=== PATIENT | female | born 1950 | race Caucasian/White ===

== ENCOUNTER 2017-03-22 09:23 | Outpatient (CLI) | payer BC ==
--- NOTE | 2017-03-22 10:28 | ULT ---
THRYOID ULTRASOUND: Date: 03-22-17 Provided Clinical History: Thyroid nodules. Comparison: 09-09-15 FINDINGS: Right thyroid lobe measures about 4.1 x 1.8 x 1.7 cm. Multiple solid appearing thyroid nodules are se en on the right, one at the midportion measuring about 1.7 cm maximally and one at the inferior pole measuring about 1.8 cm maximally. Left thyroid lobe measures about 3.9 x 1.5 x 1.3 cm and demonstrates several subcentimeter solid appe aring nodules. The largest measures about 1 cm in the mid portion of the left thyroid lobe. No defini te enlargement of pre-existing nodule or evidence for a new nodule. IMPRESSION: 1. Stable bilateral thyroid nodules. POS: [facility]
== END 2017-03-22 09:24 | disposition home or self-care (01) ==
LOC: ULT 09:23
PROVIDERS: ATTEND Otolaryngology Plastic Surgery within the Head & Neck
DX: E04.2 Nontoxic multinodular goiter (principal)
CPT/HCPCS: 76536

== ENCOUNTER 2017-05-23 10:54 | Outpatient (CLI) | payer BC | END 2017-05-23 10:55 | disposition home or self-care (01) | LOC: BICMAMMO 10:54 | PROVIDERS: ATTEND Family Medicine | DX: Z12.31 Encounter for screening mammogram for malignant neoplasm of breast (principal) | CPT/HCPCS: 77063; 77067 ==

== ENCOUNTER 2018-01-22 14:13 | Outpatient (CLI) | payer BC ==
--- NOTE | 2018-01-22 15:48 | MRI ---
MRI LUMBAR SPINE WITH AND WITHOUT CONTRAST: Multiplanar, multisequential imaging of the lumbar spine obtained. Postcontrast images were obtained administering 15 cc of MultiHance IV. INDICATION: Lumbar radiculopathy. Low back pain with radiation to the left leg. COMPARISON: Correlation is made to an MRI of the lumbar spine dated 01/04/2015. That exam revealed mild anteroli sthesis at L5-S1. FINDINGS: On today's exam, postoperative changes are now noted at L5-S1 with pedicle screws at these levels. T here continues to be a mild anterolisthesis at L5-S1 which does not appear significantly changed when compared to the 2015 study. Lumbar vertebrae maintain height. Vertebral body signal is normally ma intained. Disk space are preserved. At L1-2, mild disk bulge without central canal or foraminal stenosis. At L2-3, mild disk bulge. No central canal or foraminal stenosis. Mild facet arthrosis. At L3-4, mild disk bulge abuts the thecal sac. Mild facet hypertrophy. No significant central canal or foraminal stenosis. At L4-5, a minimal listhesis. Broad-based bulge. Moderate facet hypertrophy. Moderate central ari l stenosis at this level. Bilateral foraminal stenosis secondary to disk bulge and facet hypertrophy . Pedicle screws at L5. The right pedicle screw obscures the lateral recess on the right. Pedicle scr ew position could be better assessed by CT if indicated. At L5-S1 disk, there is a mild anterior listhesis with associated disk bulge abutting the thecal sac. Mild foraminal narrowing, more prominent on the right due to asymmetric disk bulge and facet hypert rophy on the right. There appears to be disk-osteophyte complex contacting the exiting right L5 nerv e root within the foramina. Pedicle screws are seen at S1. IMPRESSION: 1. Postoperative changes now noted at L5-S1. Mild anterior listhesis of L5-S1 again noted. Right f oraminal encroachment with disk-osteophyte complex contacting the exiting right L5 nerve root as desc ribed. 2. There is evidence of multiple bilateral renal cystic lesions with a large one on the left measuri ng up to 5 cm. These cystic lesions were present on the prior MRI from 2014. POS: [facility]
== END 2018-01-22 14:14 | disposition home or self-care (01) ==
LOC: MRI 14:13
PROVIDERS: ATTEND Neurological Surgery
DX: M54.16 Radiculopathy, lumbar region (principal); N28.1 Cyst of kidney, acquired; M43.17 Spondylolisthesis, lumbosacral region; M25.78 Osteophyte, vertebrae; Z98.890 Other specified postprocedural states
CPT/HCPCS: 72158

== ENCOUNTER 2018-01-31 12:59 | Emergency (ER) | payer BC ==
--- NOTE | 2018-01-31 14:20 | RAD ---
2 VIEW CHEST: Date: 01/31/18 COMPARISON: 03/05/17. INDICATION: Cough. FINDINGS: No consolidation, effusion, or pneumothorax. Cardiac silhouette is stable in size. No significant int erval change. IMPRESSION: Stable chest. POS: [facility]
== END 2018-01-31 14:35 | disposition home or self-care (01) ==
LOC: SCSER 12:59
DX: J06.9 Acute upper respiratory infection, unspecified (principal); J40 Bronchitis, not specified as acute or chronic; E78.5 Hyperlipidemia, unspecified; I10 Essential (primary) hypertension; Z79.899 Other long term (current) drug therapy; Z79.82 Long term (current) use of aspirin
CPT/HCPCS: 71046

== ENCOUNTER 2018-03-17 06:27 | Outpatient (CLI) | payer BC | END 2018-03-17 06:28 | disposition home or self-care (01) | LOC: LABBT 06:27 | PROVIDERS: ATTEND Neurological Surgery | DX: Z01.818 Encounter for other preprocedural examination (principal); M54.16 Radiculopathy, lumbar region | CPT/HCPCS: 93005; 93010 ==

== ENCOUNTER 2018-03-19 05:32 | Day surgery (SDC) | payer BC ==
[2018-03-17 09:33] VITALS: BMI 35.6
--- NOTE | 2018-03-18 10:01 | HP ---
HISTORY OF PRESENT ILLNESS: Ms. Anand is a very pleasant 68-year-old woman, who is known to us for prior lumbar fusion, who returns today with now adjacent segment disease seen on MRI from [place] at L3-L4. She reports severe left L4 radiculopathy, which alters her gait and keeps her up at night. She also has what appears to be some foraminal stenosis at L4 as well on the left side, all fits her pain rather well. She has treated this conservatively with injections, therapy, and [id number] medications and unfortunately, has not reached to the point, where she feels that she has made any significant improvement and would like to move forward with surgery at this time. PAST MEDICAL HISTORY: She has a medical history of hypertension. CURRENT MEDICATIONS: 1. Omeprazole. 2. Zyrtec. 3. Aspirin 81 mg. 4. Lyrica. 5. Amlodipine. 6. Valsartan. 7. Spironolactone. 8. Ambien. 9. Pravastatin. ALLERGIES: NO KNOWN DRUG ALLERGIES. PHYSICAL EXAMINATION: The patient is alert and oriented x3. Gait is significantly antalgic. Lower extremity exam is normal. She does have a positive left femoral stretch. ASSESSMENT: Lumbar stenosis with radiculopathy. PLAN: Dr. Faustin met with the patient, reviewed imaging, and advocated for L3-L4 decompression and left L4 facetectomy. He explained to the patient the risks, benefits, and alternatives to the procedure. The patient expressed understanding and elected to move forward with surgery as discussed. I do believe the patient is mentally competent and capable of making medical decisions for herself. We will move forward with surgery as planned. Job ID: [id number]
[2018-03-19] MEDS ORDERED: Bupivacaine HCl 0.5%/Epinephrine 1:200,000/PF 30 ml Vial ONE (06:20)
[2018-03-19] MEDS ORDERED: Thrombin 5000 UNITS/5 ML VIAL ONE (06:20)
[2018-03-19] MEDS ORDERED: CEFAZOLIN 2 GM/50 ML BAG ONE ×2 (06:28→11:35)
[2018-03-19] MEDS ORDERED: Midazolam HCl 2 mg/2 ml Vial ONE (06:43)
[2018-03-19 06:44] LABS: #Eosinphils 0.2 thou/uL (0.0-0.7); #Lymphocytes 1.9 thou/uL (1.20-3.40); #Monocytes 0.6 thou/uL (0.11-0.59); #Neutrophils 2.9 thou/uL (1.40-6.50); %Basophils 0.2 % (0.0-1.0); %Eosinophils 3.5 % (0.0-10.0); %Lymphocytes 34.3 % (21.0-51.0); %Monocytes 10.4 % (0.0-10.0); %Neutrophils 51.7 % (42.0-75.0); Hemoglobin 13.2 g/dL (12.0-16.0); Mean Corpuscular HGB CONC 33.3 g/dL (32.0-36.0); Mean Corpuscular Hemoglobin 29.3 pg (27.0-31.0); Mean Platelet Volume 7.8 fL (7.4-10.4); Platelet Count 277 thou/uL (130-400); RBC Distribution Width 11.9 % (11.5-14.5); Red Blood Cell (RBC) Count 4.51 mill/uL (4.20-5.40); White Blood Cell (WBC) Count 5.5 thou/uL (4.8-10.8)
[2018-03-19 06:51] LABS: INR-International Normal Ratio 1.1; PTT 31.4 SEC (22.9-36.1); Prothrombin Time 14.7 SEC (12.0-14.7)
[2018-03-19] MEDS ORDERED: Fentanyl 100 MCG/2 ML VIAL ONE ×2 (07:05→10:44)
--- NOTE | 2018-03-19 10:23 | OP ---
DATE OF PROCEDURE: 03/19/2018 [employer] OPERATOR: Amandeep Lewis PA-C INDICATION: Pain. DIAGNOSIS: Lumbar radiculopathy. PROCEDURES PERFORMED: Left L4 medial facetectomy and left L3-L4 lateral recess decompression. ANESTHESIA: General. DESCRIPTION OF PROCEDURE: The patient was brought into the operating room, placed under general anesthesia. She was flipped from the supine to prone position on the operating room table. A linear incision was planned over the L3 and L4 segments. After prepping and draping and after preoperative pause, the incision was created. The soft tissues were swept left of midline. A self-retaining retractor was placed. The L4 lamina was identified with C-arm fluoroscopy and a high-speed cutting drill bit was used to perform a laminectomy along the left side encompassing all of L4 and the inferior aspect of L3 in order to decompress the L3-L4 segment. The L4 laminectomy was extended laterally to encompass the medial aspect of the facet joint in order to decompress the exiting L4 nerve root. At the completion of the procedure, the descending L4 and exiting L4 nerve root on the left was well decompressed. The wound was irrigated. Hemostasis was maintained throughout. The wound was then closed in anatomic layers and a pressure dressing was applied. There were no known procedural complications. Job ID: [id number]
[2018-03-19] MEDS ORDERED: HYDROcodone/Acetaminophen 5/325 mg Tablet ONE (11:45)
[2018-03-19] MEDS ORDERED: Dexamethasone 20 MG/5 ML VIAL ONE (13:15)
[2018-03-19] MEDS ORDERED: ePHEDrine/0.9% NaCl/PF SYRINGE 50 mg/10 ml ONE (13:15)
[2018-03-19] MEDS ORDERED: Lidocaine 1% PF 5 ML VIAL ONE (13:15)
[2018-03-19] MEDS ORDERED: Glycopyrrolate 0.2 MG/ML 5 ML SYRINGE ONE (13:15)
[2018-03-19] MEDS ORDERED: Ondansetron PF 4 MG/2 ML Vial ONE (13:15)
[2018-03-19] MEDS ORDERED: PROPOFOL 200 MG/20 ML VIAL ONE (13:15)
[2018-03-19] MEDS ORDERED: Rocuronium Bromide 10 MG/ML (10ML VIAL) ONE (13:15)
== END 2018-03-19 12:15 | disposition home or self-care (01) ==
LOC: SDC 05:32
PROVIDERS: ATTEND Neurological Surgery
PROC: 01NB0ZZ Release Lumbar Nerve, Open Approach (ICD-10-PCS; principal; 2018-03-19)
DX: M48.061 Spinal stenosis, lumbar region without neurogenic claudication (principal); M54.16 Radiculopathy, lumbar region; I10 Essential (primary) hypertension; Z79.82 Long term (current) use of aspirin; Z79.899 Other long term (current) drug therapy; Z88.2 Allergy status to sulfonamides; Z88.5 Allergy status to narcotic agent; Z88.8 Allergy status to other drugs, medicaments and biological substances; Z91.041 Radiographic dye allergy status; Z98.1 Arthrodesis status
CPT/HCPCS: 36415; 76000; 85025; 85610; 85730; J0670; J1100; J2001; J2250; J2405; J2704; J3010

== ENCOUNTER 2018-03-23 16:11 | Emergency (ER) | payer BC ==
[2018-03-23] MEDS ORDERED: methylPREDNISolone Sod Succ/PF 125 MG/2 ML VIAL ONE (16:36)
[2018-03-23] MEDS ORDERED: diphenhydrAMINE 50 MG/ML VIAL ONE (16:36)
[2018-03-23] MEDS ORDERED: Benzocaine 20% Spray 60 ML CAN ONE ×2 (16:49→16:50)
[2018-03-23 16:56] LABS: #Basophils 0.1 thou/uL (0.0-0.2); #Eosinphils 0.3 thou/uL (0.0-0.7); #Lymphocytes 2.7 thou/uL (1.20-3.40); #Monocytes 0.6 thou/uL (0.11-0.59); #Neutrophils 4.8 thou/uL (1.40-6.50); %Basophils 1.1 % (0.0-1.0); %Eosinophils 3.9 % (0.0-10.0); %Monocytes 6.8 % (0.0-10.0); %Neutrophils 56.2 % (42.0-75.0); Hemoglobin 13.4 g/dL (12.0-16.0); Mean Corpuscular Hemoglobin 28.8 pg (27.0-31.0); Mean Corpuscular Volume 87.3 fL (78.0-98.0); Mean Platelet Volume 8.5 fL (7.4-10.4); Platelet Count 283 thou/uL (130-400); RBC Distribution Width 12.5 % (11.5-14.5); Red Blood Cell (RBC) Count 4.64 mill/uL (4.20-5.40); White Blood Cell (WBC) Count 8.6 thou/uL (4.8-10.8)
[2018-03-23 17:08] LABS: ALT (SGPT) 22 U/L (8-55); AST (SGOT) 25 U/L (5-34); Albumin 3.5 g/dL (3.4-4.8); Alkaline Phosphatase 119 U/L (40-150); Anion Gap 13 mmol/L (10-20); BUN (Urea Nitrogen) 11 mg/dL (9.8-20.1); Bilirubin, Total 0.4 mg/dL (0.2-1.2); Calc. Creatinine Clearance 0 mL/min (70-130); Carbon Dioxide 28 mmol/L (23-31); Chloride 107 mmol/L (98-107); Estimated GFR-MDRD 61; Globulin 2.7 g/dL (2.4-3.5); Glucose 100 mg/dL (80-115); Potassium 3.5 mmol/L (3.5-5.1); Protein, Total 6.2 g/dL (6.0-8.3); Sodium 144 mmol/L (136-145)
[2018-03-23] MEDS ORDERED: Meclizine HCl 25 MG TAB ONE (17:16)
== END 2018-03-23 18:59 | disposition home or self-care (01) ==
LOC: SCSER 16:11
DX: J35.8 Other chronic diseases of tonsils and adenoids (principal); R42 Dizziness and giddiness; I10 Essential (primary) hypertension; E78.5 Hyperlipidemia, unspecified; K21.9 Gastro-esophageal reflux disease without esophagitis; Z79.899 Other long term (current) drug therapy
CPT/HCPCS: 80053; 85025; 93005; 96374; 96375; J1200; J2930

== ENCOUNTER 2018-04-23 12:33 | Outpatient (CLI) | payer BC ==
--- NOTE | 2018-04-23 14:31 | CT ---
CT LUMBAR SPINE WITHOUT CONTRAST: HISTORY: Lumbar radiculopathy. CORRELATION: Lumbar spine MRI from 01/22/2018. FINDINGS: Based on the nomenclature from the previous examination, the fusion level will be designated as L5-S1 . There is persistent anterolisthesis of L5 upon S1 (6 mm). Bilateral transpedicular screws at L5 a nd S1 without perihardware lucency. The visualized lung parenchymal and solid organs are unremarkable. No retroperitoneal mass, lymphade nopathy, or hematoma. There is diverticulosis in the sigmoid colon. No evidence of diverticulitis. However, the mucosa of the mid sigmoid colon is somewhat prominent. The patient should consider und ergoing a colonoscopy if she has not done so, to exclude an underlying neoplastic process. Limited evaluation of the contents of the central spinal canal and neural foramina due to technique. T12-L1: No significant central canal stenosis or foraminal narrowing. L1-L2: No significant central canal stenosis or foraminal narrowing. L2-L3: Minimal generalized disk bulge without significant central canal stenosis or foraminal narrow ing. L3-L4: Generalized disk bulge without significant central canal stenosis or foraminal narrowing. L4-L5: Left hemilaminectomy defect. Generalized disk bulge without significant central canal stenos is. The right neural foramen is mildly narrowed. The left foramen is patent. L5-S1: Limited evaluation of the central spinal canal. No evidence of high-grade central canal sten osis or high-grade foraminal narrowing. IMPRESSION: 1. Uncomplicated lumbar fusion at L5-S1. No significant central canal stenosis or foraminal narrowi ng. 2. Left laminotomy defect at L4-L5. POS: [facility]
== END 2018-04-23 12:34 | disposition home or self-care (01) ==
LOC: BICCT 12:33
PROVIDERS: ATTEND Neurological Surgery
DX: M54.16 Radiculopathy, lumbar region (principal); Z98.1 Arthrodesis status
CPT/HCPCS: 72131

== ENCOUNTER 2018-04-25 13:43 | Outpatient (CLI) | payer BC ==
--- NOTE | 2018-04-25 16:14 | ULT ---
THYROID ULTRASOUND: INDICATIONS: Thyroid nodules. COMPARISON: 03/22/2017 TECHNIQUE: Ma-scale color Doppler images were obtained. FINDINGS: The right thyroid lobe measures 4.4 x 1.8 x 1.7 cm. There is a stable TI-RADS 3 solid nodule within the lower right thyroid gland, measuring 1.5 x 1.2 x 1 cm. Additional TI-RADS 3 solid nodule is seen within the right mid thyroid gland, measuring 1.5 x 1.2 x 0.9 cm. Stable TI-RADS 3 solid nodule is seen within the superior pole right thyroid lobe, measuring 0.8 cm. The left thyroid lobe measures 3.8 x 1.3 x 1.3 cm. There are stable, solid, hypoechoic nodules withi n the left thyroid gland, the largest measuring 1 cm, within the left mid thyroid lobe. There are 6 mm nodules seen within the superior and lower pole of the left thyroid gland. The thyroid isthmus measures 0.2 cm. IMPRESSION: Stable thyroid nodules. No sonographic followup is recommended, as these TI-RADS 3 lesions have been stable. POS: [facility]
== END 2018-04-25 13:44 | disposition home or self-care (01) ==
LOC: SCSULT 13:43
PROVIDERS: ATTEND Otolaryngology Plastic Surgery within the Head & Neck
DX: E04.1 Nontoxic single thyroid nodule (principal); E04.2 Nontoxic multinodular goiter
CPT/HCPCS: 76536

== ENCOUNTER 2018-09-10 06:57 | Emergency (ER) | payer BC, MEDICARE ==
[2018-09-10] MEDS ORDERED: Ketorolac Tromethamine 30 MG/ML VIAL ONE (07:20)
[2018-09-10] MEDS ORDERED: Cyclobenzaprine 10 MG TAB ONE (07:20)
--- NOTE | 2018-09-10 08:11 | RAD ---
XR Lumbar Spine 2 Or 3 View: 09/10/2018 7:19 AM CLINICAL INDICATION: Back pain COMPARISON: 03/10/2015 FINDINGS: Fracture:No fracture. Arthropathy:Degenerative changes of the lumbar spine, mid inferior aspect are grossly stable. There i s persistent Grade I-II spondylolisthesis at L5-S1 with associated posterior fusion of L5-S1 levels, without interval hardware complication identified Incidental findings:None of significance. IMPRESSION: 1. Stable postoperative lumbar spine with persistent Grade I-II spondylolisthesis, L5-S1.
--- NOTE | 2018-09-10 08:12 | RAD ---
XR Thoracic Spine 3 V STANDARD: 09/10/2018 7:19 AM CLINICAL INDICATION: Back pain, left thoracic spinal pain COMPARISON: None. FINDINGS: Fracture:No fracture. Arthropathy:Mild multilevel degenerative change of the thoracic spine is present Incidental findings:Cervical spondylosis IMPRESSION: 1. No acute osseous abnormality.
[2018-09-10] MEDS ORDERED: traMADol HCl 50 MG TAB ONE (08:49)
== END 2018-09-10 09:05 | disposition home or self-care (01) ==
LOC: ERS 06:57
DX: S39.012A Strain of muscle, fascia and tendon of lower back, initial encounter (principal); I10 Essential (primary) hypertension; E78.5 Hyperlipidemia, unspecified; Z79.82 Long term (current) use of aspirin; Z79.899 Other long term (current) drug therapy; Z79.891 Long term (current) use of opiate analgesic; X58.XXXA Exposure to other specified factors, initial encounter
CPT/HCPCS: 72072; 72100; 96372; J1885

== ENCOUNTER 2018-09-26 18:44 | Emergency (ER) | payer BC, MEDICARE ==
[2018-09-26] MEDS ORDERED: Promethazine HCl 25 MG/ML VIAL ONE ×2 (19:36→20:41)
[2018-09-26 19:39] LABS: #Basophils 0.1 thou/uL (0.0-0.2); #Eosinphils 0.2 thou/uL (0.0-0.7); #Lymphocytes 3.1 thou/uL (1.20-3.40); #Monocytes 0.6 thou/uL (0.11-0.59); #Neutrophils 5.6 thou/uL (1.40-6.50); %Basophils 0.9 % (0.0-1.0); %Eosinophils 2.5 % (0.0-10.0); %Lymphocytes 32.3 % (21.0-51.0); %Monocytes 6.2 % (0.0-10.0); %Neutrophils 58.2 % (42.0-75.0); Hemoglobin 13.6 g/dL (12.0-16.0); Mean Corpuscular HGB CONC 33.2 g/dL (32.0-36.0); Mean Corpuscular Hemoglobin 28.5 pg (27.0-31.0); Mean Platelet Volume 7.7 fL (7.4-10.4); Platelet Count 345 thou/uL (130-400); Red Blood Cell (RBC) Count 4.76 mill/uL (4.20-5.40); White Blood Cell (WBC) Count 9.6 thou/uL (4.8-10.8)
[2018-09-26 19:54] LABS: ALT (SGPT) 20 U/L (8-55); AST (SGOT) 14 U/L (5-34); Albumin 3.7 g/dL (3.4-4.8); Alkaline Phosphatase 141 U/L (40-150); Anion Gap 13 mmol/L (10-20); BUN (Urea Nitrogen) 14 mg/dL (9.8-20.1); Bilirubin, Total 0.3 mg/dL (0.2-1.2); Calc. Creatinine Clearance 0 mL/min (70-130); Calcium 9.5 mg/dL (7.8-10.44); Carbon Dioxide 25 mmol/L (23-31); Chloride 106 mmol/L (98-107); Estimated GFR-MDRD 67; Globulin 3.1 g/dL (2.4-3.5); Glucose 97 mg/dL (80-115); Potassium 3.9 mmol/L (3.5-5.1); Protein, Total 6.8 g/dL (6.0-8.3); Sodium 140 mmol/L (136-145)
--- NOTE | 2018-09-26 20:27 | RAD ---
EXAM: ABDOMEN TWO VIEWS CHEST ONE VIEW: 09/26/18 HISTORY: Diverticulitis, abdominal pain. No significant acute process in the chest. No free intraperitoneal air. Postop changes of the lower l umbar spine as well as post cholecystectomy clips. No large or small bowel obstruction. No overt calc ulus. IMPRESSION: Unremarkable abdomen two views, chest one view. POS: [facility]
[2018-09-26] MEDS ORDERED: Ketorolac Tromethamine 30 MG/ML VIAL ONE (20:46)
[2018-09-26] MEDS ORDERED: cloNIDine 0.1 MG TAB ONE (20:46)
[2018-09-26 21:24] LABS: Bilirubin Negative (Negative); Blood, Urine Trace (Negative); Clarity Clear (Clear); Glucose, Urine (Dipstick) Negative (Negative); Leukocyte Trace (Negative); Nitrite Negative (Negative); Protein, Urine (Dipstick) Negative (Neg-Trace); Urobilinogen 0.2 mg/dL (Less than 2)
[2018-09-26 21:26] LABS: Bacteria/HPF Rare-Few HPF (None Seen); RBC/HPF 0-3 HPF (0-3); Squamous Epithelial 0-3 HPF (0-3); WBC/HPF 0-3 HPF (0-3)
== END 2018-09-26 21:39 | disposition home or self-care (01) ==
LOC: SCSER 18:44
DX: R10.9 Unspecified abdominal pain (principal); R10.817 Generalized abdominal tenderness; K21.9 Gastro-esophageal reflux disease without esophagitis; E78.5 Hyperlipidemia, unspecified; I10 Essential (primary) hypertension; Z79.82 Long term (current) use of aspirin; Z79.899 Other long term (current) drug therapy
CPT/HCPCS: 74022; 80053; 81003; 81015; 83690; 85025; 96365; 96366; 96375; J1885; J2550

== ENCOUNTER 2020-05-04 14:25 | Outpatient (CLI) | payer MEDICARE, OTHER | END 2020-05-04 14:26 | disposition home or self-care (01) | LOC: BICMAMMO 14:25 | PROVIDERS: ATTEND Family Medicine | DX: Z12.31 Encounter for screening mammogram for malignant neoplasm of breast (principal); Z13.820 Encounter for screening for osteoporosis; M85.852 Other specified disorders of bone density and structure, left thigh; M85.851 Other specified disorders of bone density and structure, right thigh; Z78.0 Asymptomatic menopausal state | CPT/HCPCS: 77063; 77067; 77080 ==

== ENCOUNTER 2020-05-13 09:54 | Outpatient (CLI) | payer BC, MEDICARE | END 2020-05-13 09:55 | disposition home or self-care (01) | LOC: LABBT 09:54 | PROVIDERS: ATTEND Neurological Surgery | DX: Z01.810 Encounter for preprocedural cardiovascular examination (principal); M54.16 Radiculopathy, lumbar region | CPT/HCPCS: 93005; 93010 ==

== ENCOUNTER 2020-05-18 06:23 | Day surgery (SDC) | payer MEDICARE, OTHER ==
[2020-05-17 14:10] VITALS: BMI 34.0
[2020-05-18] MEDS ORDERED: Bupivacaine PF 0.5% 30 ML VIAL ONE (06:57)
[2020-05-18] MEDS ORDERED: EPINEPHrine 1 MG/ML AMP ONE (06:57)
[2020-05-18] MEDS ORDERED: Thrombin 5000 UNITS/5 ML VIAL ONE (06:57)
[2020-05-18] MEDS ORDERED: Fentanyl 100 MCG/2 ML VIAL ONE ×2 (06:59→10:07)
[2020-05-18] MEDS ORDERED: SUGAMMADEX SODIUM 200 MG/2 ML VIAL ONE (07:33)
[2020-05-18] MEDS ORDERED: PROPOFOL 200 MG/20 ML VIAL ONE (08:22)
[2020-05-18] MEDS ORDERED: Rocuronium Bromide 10 MG/ML (10ML VIAL) ONE (08:22)
[2020-05-18] MEDS ORDERED: Ketorolac Tromethamine 30 MG/ML VIAL ONE (08:22)
[2020-05-18] MEDS ORDERED: Dexamethasone 20 MG/5 ML VIAL ONE (08:22)
[2020-05-18] MEDS ORDERED: Ondansetron PF 4 MG/2 ML Vial ONE (08:22)
[2020-05-18] MEDS ORDERED: Lidocaine 1% PF 5 ML VIAL ONE (08:22)
[2020-05-18] MEDS ORDERED: ePHEDrine 50 MG/ML VIAL ONE (08:22)
== END 2020-05-18 12:50 | disposition home or self-care (01) ==
LOC: SDC 06:23
PROVIDERS: ATTEND Neurological Surgery
PROC: 01NB0ZZ Release Lumbar Nerve, Open Approach (ICD-10-PCS; principal; 2020-05-18)
DX: M54.16 Radiculopathy, lumbar region (principal); M48.061 Spinal stenosis, lumbar region without neurogenic claudication; I25.10 Atherosclerotic heart disease of native coronary artery without angina pectoris; I10 Essential (primary) hypertension; E78.00 Pure hypercholesterolemia, unspecified; K21.9 Gastro-esophageal reflux disease without esophagitis; M79.7 Fibromyalgia; E78.2 Mixed hyperlipidemia; Z79.82 Long term (current) use of aspirin; Z79.899 Other long term (current) drug therapy; Z88.2 Allergy status to sulfonamides; Z88.5 Allergy status to narcotic agent; Z88.8 Allergy status to other drugs, medicaments and biological substances; Z91.041 Radiographic dye allergy status
CPT/HCPCS: 76000; J0171; J0690; J1100; J1885; J2405; J2704; J3010; J3490; S0020

== ENCOUNTER 2022-05-22 10:19 | Outpatient (CLI) | payer MEDICARE | END 2022-05-22 10:20 | disposition home or self-care (01) | LOC: BICMAMMO 10:19 | PROVIDERS: ATTEND Family Medicine | DX: Z12.31 Encounter for screening mammogram for malignant neoplasm of breast (principal); Z13.820 Encounter for screening for osteoporosis; M85.851 Other specified disorders of bone density and structure, right thigh; M85.852 Other specified disorders of bone density and structure, left thigh; Z91.89 Other specified personal risk factors, not elsewhere classified; Z78.0 Asymptomatic menopausal state | CPT/HCPCS: 77063; 77067; 77080 ==

== ENCOUNTER 2022-06-11 06:08 | Day surgery (SDC) | payer MEDICARE ==
[2022-06-07 13:08] VITALS: BMI 33.6
[2022-06-08 15:31] LABS: Hemoglobin 13.2 g/dL (12.0-15.5); Mean Corpuscular HGB CONC 33.3 g/dL (32.0-36.0); Mean Corpuscular Hemoglobin 29.3 pg (27.0-33.0); Mean Platelet Volume 10.5 fl (7.4-10.4); Platelet Count 298 10x3/uL (150-450); RBC Distribution Width 12.9 % (11.5-14.5)
[2022-06-08 15:36] LABS: Anion Gap 15 mmol/L (10-20); BUN (Urea Nitrogen) 12 mg/dL (9.8-20.1); Calc. Creatinine Clearance 91 mL/min (70-130); Calcium 9.2 mg/dL (7.8-10.44); Carbon Dioxide 24 mmol/L (23-31); Chloride 107 mmol/L (98-107); Estimated GFR 86; Glucose 94 mg/dL (83-110); Potassium 3.9 mmol/L (3.5-5.1); Sodium 142 mmol/L (136-145)
[2022-06-11] MEDS ORDERED: Heparin 10,000 UNITS/ 10 ML VIAL ONE ×2 (06:34→12:45)
[2022-06-11] MEDS ORDERED: fentaNYL PF 100 MCG/2 ML SYRINGE ONE (08:44)
[2022-06-11] MEDS ORDERED: Propofol 1,000 MG/100 ML VIAL IV ONE (08:44)
[2022-06-11] MEDS ORDERED: Lidocaine 1% (PF) 30 ML VIAL ONE (08:57)
[2022-06-11] MEDS ORDERED: Lidocaine 2% Jelly 5 ML TUBE ONE (09:30)
[2022-06-11] MEDS ORDERED: GLYCOPYRROLATE/PF 0.2 MG/ML VIAL ONE (09:35)
[2022-06-11] MEDS ORDERED: Rocuronium Bromide 10 MG/ML (10ML VIAL) ONE (09:35)
[2022-06-11] MEDS ORDERED: NEOSTIGMINE 3 MG/3 ML SYR 3 MG/3 ML SYRINGE ONE (09:35)
[2022-06-11] MEDS ORDERED: PROPOFOL 200 MG/20 ML VIAL ONE (09:35)
[2022-06-11] MEDS ORDERED: Phenylephrine 10 MG/ML VIAL ONE (09:35)
[2022-06-11] MEDS ORDERED: Ondansetron PF 4 MG/2 ML Vial ONE ×3 (09:35→14:28)
[2022-06-11] MEDS ORDERED: Isoproterenol 0.2 MG/1 ML AMP ONE (10:14)
[2022-06-11] MEDS ORDERED: Heparin 25,000 units/D5W 500 ML ONE (12:45)
[2022-06-11] MEDS ORDERED: Protamine Sulfate 50 MG/5 ML VIAL ONE ×2 (13:32)
[2022-06-11] MEDS ORDERED: fentaNYL 50 mcg/mL 1 mL Vial ONE ×2 (14:12→15:01)
== END 2022-06-11 18:40 | disposition home or self-care (01) ==
LOC: SDC 06:08
PROVIDERS: ATTEND Internal Medicine Cardiovascular Disease
PROC: 02583ZZ Destruction of Conduction Mechanism, Percutaneous Approach (ICD-10-PCS; principal; 2022-06-11)
PROC: 02K83ZZ Map Conduction Mechanism, Percutaneous Approach (ICD-10-PCS; 2022-06-11)
PROC: 4A023FZ Measurement of Cardiac Rhythm, Percutaneous Approach (ICD-10-PCS; 2022-06-11)
PROC: 4A0234Z Measurement of Cardiac Electrical Activity, Percutaneous Approach (ICD-10-PCS; 2022-06-11)
DX: I48.3 Typical atrial flutter (principal); I48.4 Atypical atrial flutter; I48.91 Unspecified atrial fibrillation; I47.1 Supraventricular tachycardia; I25.10 Atherosclerotic heart disease of native coronary artery without angina pectoris; E78.5 Hyperlipidemia, unspecified; I10 Essential (primary) hypertension; K21.9 Gastro-esophageal reflux disease without esophagitis; G89.29 Other chronic pain; M54.9 Dorsalgia, unspecified; M79.7 Fibromyalgia; Z79.899 Other long term (current) drug therapy; Z88.2 Allergy status to sulfonamides; Z88.5 Allergy status to narcotic agent; Z88.8 Allergy status to other drugs, medicaments and biological substances; Z91.041 Radiographic dye allergy status
CPT/HCPCS: 80048; 85027; 93005; 93623; 93656; 93657; J3010; C1732; C1759; C1769; C1894; C2630; J1644; J2001; J2370; J2405; J2704; J2720; J3490

== ENCOUNTER 2022-06-12 11:52 | Inpatient (IN) | payer MEDICARE ==
[2022-06-12 12:43] LABS: Prothrombin Time 104.9 sec (12.0-14.7)
[2022-06-12 12:52] LABS: ALT (SGPT) 34 U/L (8-55); AST (SGOT) 60 U/L (5-34); Albumin 3.6 g/dL (3.4-4.8); Alkaline Phosphatase 132 U/L (40-110); Anion Gap 13 mmol/L (10-20); BUN (Urea Nitrogen) 12 mg/dL (9.8-20.1); Bilirubin, Total 1.2 mg/dL (0.2-1.2); Calc. Creatinine Clearance 0 mL/min (70-130); Calcium 8.7 mg/dL (7.8-10.44); Carbon Dioxide 21 mmol/L (23-31); Chloride 109 mmol/L (98-107); Estimated GFR 92; Globulin 2.3 g/dL (2.4-3.5); Glucose 111 mg/dL (83-110); Potassium 3.8 mmol/L (3.5-5.1); Protein, Total 5.9 g/dL (5.8-8.1); Sodium 139 mmol/L (136-145)
[2022-06-12 12:59] LABS: INR-International Normal Ratio 13.1
[2022-06-12 13:00] LABS: PTT Greater than 250.0 sec (22.9-36.1)
[2022-06-12 13:02] LABS: #Lymphocytes 1.4 thou/uL (1.20-3.40); #Monocytes 1.3 thou/uL (0.11-0.59); #Neutrophils 10.1 thou/uL (1.40-6.50); %Basophils 0.1 % (0.0-1.0); %Eosinophils 0.2 % (0.0-10.0); %Lymphocytes 10.9 % (21.0-51.0); %Monocytes 10.1 % (0.0-10.0); %Neutrophils 78.7 % (42.0-75.0); Hemoglobin 12.5 g/dL (12.0-16.0); Mean Corpuscular HGB CONC 34.3 g/dL (32.0-36.0); Mean Corpuscular Hemoglobin 31.1 pg (27.0-31.0); Mean Corpuscular Volume 90.8 fl (78.0-98.0); Mean Platelet Volume 8.4 fL (7.4-10.4); Platelet Count 246 10x3/uL (130-400); RBC Distribution Width 11.9 % (11.5-14.5); Red Blood Cell (RBC) Count 4.01 mill/uL (4.20-5.40); White Blood Cell (WBC) Count 12.8 10x3/uL (4.8-10.8)
[2022-06-12] MEDS ORDERED: Ondansetron PF 4 MG/2 ML Vial ONE ×2 (13:19)
[2022-06-12] MEDS ORDERED: Phytonadione 10 MG/ML AMP ONE (13:19)
[2022-06-12] MEDS ORDERED: Pantoprazole 40 MG VIAL ONE (13:20)
[2022-06-12 13:33] LABS: CK (CPK) 200 U/L (29-168); Lipase 11 U/L (8-78)
[2022-06-12 13:51] LABS: CKMB 7.7 ng/mL (0-6.6)
[2022-06-12] MEDS ORDERED: Famotidine/PF 20 mg/2ml Vial ONE (14:46)
[2022-06-12] MEDS ORDERED: methylPREDNISolone Sod Succ 40 MG VIAL ONE (14:46)
[2022-06-12] MEDS ORDERED: diphenhydrAMINE 50 MG/ML VIAL ONE (14:47)
[2022-06-12] MEDS ORDERED: traMADol HCl 50 MG TAB PO PRN (14:58)
[2022-06-12] MEDS ORDERED: Iopamidol-370 76% 500 ML MDV (1 ML CHARGE) ONE (14:58)
[2022-06-12] MEDS ORDERED: Acetaminophen 325 MG TAB PO PRN (15:02)
[2022-06-12] MEDS ORDERED: Ondansetron PF 4 MG/2 ML Vial IVP PRN (15:02)
[2022-06-12 15:52] LABS: Troponin I 11.489 ng/mL (< 0.028)
[2022-06-12 18:31] VITALS: BMI 33.6
[2022-06-12 19:55] LABS: Critical Call Chem Troponin I RESULT DECREASING
[2022-06-12] MEDS: Pantoprazole 40 MG VIAL IVP SCH (21:03)
[2022-06-12] MEDS: Sucralfate 1 GM TAB PO SCH (21:10)
[2022-06-13 05:12] LABS: INR-International Normal Ratio 1.3; PTT 36.5 sec (22.9-36.1); Prothrombin Time 16.4 sec (12.0-14.7)
[2022-06-13 05:14] LABS: #Monocytes 0.8 thou/uL (0.11-0.59); #Neutrophils 11.2 thou/uL (1.40-6.50); %Basophils 0.1 % (0.0-1.0); %Eosinophils 0.1 % (0.0-10.0); %Lymphocytes 7.4 % (21.0-51.0); %Monocytes 6.4 % (0.0-10.0); Hemoglobin 11.9 g/dL (12.0-16.0); Mean Corpuscular HGB CONC 33.9 g/dL (32.0-36.0); Mean Corpuscular Hemoglobin 30.9 pg (27.0-31.0); Mean Platelet Volume 8.5 fL (7.4-10.4); Platelet Count 221 10x3/uL (130-400); RBC Distribution Width 11.9 % (11.5-14.5); Red Blood Cell (RBC) Count 3.86 mill/uL (4.20-5.40)
[2022-06-13 05:21] LABS: Anion Gap 12 mmol/L (10-20); BUN (Urea Nitrogen) 11 mg/dL (9.8-20.1); Calc. Creatinine Clearance 97 mL/min (70-130); Calcium 8.7 mg/dL (7.8-10.44); Carbon Dioxide 21 mmol/L (23-31); Chloride 109 mmol/L (98-107); Estimated GFR 92; Glucose 131 mg/dL (83-110); Potassium 3.9 mmol/L (3.5-5.1); Sodium 138 mmol/L (136-145)
[2022-06-13] MEDS: Amlodipine 5 MG TAB PO SCH (08:32)
[2022-06-13] MEDS: Furosemide 40 MG TAB PO SCH (08:32)
[2022-06-13] MEDS: Ezetimibe 10 MG TAB PO SCH (08:32)
[2022-06-13] MEDS: Sucralfate 1 GM TAB PO SCH ×4 (08:32→20:35)
[2022-06-13] MEDS: Pantoprazole 40 MG VIAL IVP SCH ×2 (08:32→20:36)
[2022-06-13 11:01] LABS: INR-International Normal Ratio 1.2; Prothrombin Time 15.9 sec (12.0-14.7)
[2022-06-13 14:55] LABS: Critical Call Chem Troponin I RESULT DECREASING
[2022-06-13] MEDS ORDERED: cefTRIAXone\\ROCEPHIN 1 GM in Sodium Chloride 0.9% 100 ML IVPB SCH (15:00)
[2022-06-13] MEDS: Doxycycline 100 MG in Sodium Chloride 0.9% 100 ML IVPB SCH (15:23)
[2022-06-13] MEDS ORDERED: Rivaroxaban 10 MG TAB PO SCH (18:00)
[2022-06-13] MEDS ORDERED: Apixaban 2.5 MG TAB PO SCH (21:00)
[2022-06-14] MEDS: Doxycycline 100 MG in Sodium Chloride 0.9% 100 ML IVPB SCH (04:57)
[2022-06-14 05:01] LABS: #Lymphocytes 1.9 thou/uL (1.20-3.40); #Monocytes 1.2 thou/uL (0.11-0.59); #Neutrophils 8.1 thou/uL (1.40-6.50); %Eosinophils 0.4 % (0.0-10.0); %Lymphocytes 17.1 % (21.0-51.0); %Monocytes 10.5 % (0.0-10.0); %Neutrophils 71.9 % (42.0-75.0); Hemoglobin 11.5 g/dL (12.0-16.0); Mean Corpuscular HGB CONC 33.1 g/dL (32.0-36.0); Mean Corpuscular Volume 90.8 fl (78.0-98.0); Mean Platelet Volume 8.1 fL (7.4-10.4); Platelet Count 252 10x3/uL (130-400); RBC Distribution Width 11.7 % (11.5-14.5); Red Blood Cell (RBC) Count 3.84 mill/uL (4.20-5.40); White Blood Cell (WBC) Count 11.3 10x3/uL (4.8-10.8)
[2022-06-14 05:13] LABS: INR-International Normal Ratio 2.2; PTT 40.9 sec (22.9-36.1); Prothrombin Time 25.2 sec (12.0-14.7)
[2022-06-14 05:23] LABS: ALT (SGPT) 23 U/L (8-55); AST (SGOT) 24 U/L (5-34); Albumin 3.3 g/dL (3.4-4.8); Alkaline Phosphatase 113 U/L (40-110); Anion Gap 13 mmol/L (10-20); BUN (Urea Nitrogen) 14 mg/dL (9.8-20.1); Bilirubin, Total 0.9 mg/dL (0.2-1.2); Calc. Creatinine Clearance 89 mL/min (70-130); Calcium 8.7 mg/dL (7.8-10.44); Carbon Dioxide 23 mmol/L (23-31); Chloride 105 mmol/L (98-107); Estimated GFR 85; Globulin 2.5 g/dL (2.4-3.5); Glucose 98 mg/dL (83-110); Potassium 3.3 mmol/L (3.5-5.1); Protein, Total 5.8 g/dL (5.8-8.1); Sodium 138 mmol/L (136-145)
[2022-06-14] MEDS: Sucralfate 1 GM TAB PO SCH ×2 (07:52→11:11)
[2022-06-14] MEDS: Pantoprazole 40 MG VIAL IVP SCH (08:00)
[2022-06-14] MEDS: Ezetimibe 10 MG TAB PO SCH (08:00)
[2022-06-14] MEDS: Amlodipine 5 MG TAB PO SCH (08:00)
[2022-06-14] MEDS: Furosemide 40 MG TAB PO SCH (08:00)
[2022-06-14] MEDS ORDERED: Electrolyte Replacement Protocol 1 EACH FS SCH (10:24)
[2022-06-14] MEDS ORDERED: Potassium Chloride 20 MEQ TAB PO SCH (10:45)
[2022-06-14 11:56] VITALS: BP 137/95; TEMP 98.1
== END 2022-06-14 12:39 | disposition home or self-care (01) | DRG 377 ==
LOC: ERS 11:52 → 2SW 13:59
PROVIDERS: ADMIT Internal Medicine; ATTEND Internal Medicine
DX: K92.0 Hematemesis (principal); J18.9 Pneumonia, unspecified organism; J96.01 Acute respiratory failure with hypoxia; I48.92 Unspecified atrial flutter; Z96.659 Presence of unspecified artificial knee joint; E78.5 Hyperlipidemia, unspecified; I48.91 Unspecified atrial fibrillation; I50.9 Heart failure, unspecified; I34.0 Nonrheumatic mitral (valve) insufficiency; I11.0 Hypertensive heart disease with heart failure; R77.8 Other specified abnormalities of plasma proteins; Z88.5 Allergy status to narcotic agent; Z88.2 Allergy status to sulfonamides; Z88.8 Allergy status to other drugs, medicaments and biological substances; Z79.899 Other long term (current) drug therapy; Z79.01 Long term (current) use of anticoagulants; Z90.49 Acquired absence of other specified parts of digestive tract; Z90.710 Acquired absence of both cervix and uterus
CPT/HCPCS: 36415; 71045; 71275; 74174; 80048; 80053; 82550; 82553; 83690; 83880; 84145; 84484; 85025; 85027; 85610; 85730; 86850; 86900; 86901; 93005; 93306; 93623; 93656; 93657; 94760; 96361; 96374; 96375; C1732; C1759; C1769; C1894; C2630; C9113; J1200; J1644; J2001; J2370; J2405; J2704; J2720; J2920; J3010; J3430; J3490; Q9967; S0028

== ENCOUNTER 2023-12-18 11:35 | Outpatient (CLI) | payer MEDICARE | END 2023-12-18 11:36 | disposition home or self-care (01) | LOC: BICMAMMO 11:35 | PROVIDERS: ATTEND Family Medicine | DX: Z12.31 Encounter for screening mammogram for malignant neoplasm of breast (principal); Z91.89 Other specified personal risk factors, not elsewhere classified | CPT/HCPCS: 77063; 77067 ==

== ENCOUNTER 2024-01-15 08:43 | Outpatient (CLI) | payer MEDICARE ==
[2024-01-15] MEDS ORDERED: Iopamidol 370 76% 100 ML VIAL ONE (13:03)
== END 2024-01-15 08:44 | disposition home or self-care (01) ==
LOC: CT 08:43
PROVIDERS: ATTEND Internal Medicine
DX: K21.9 Gastro-esophageal reflux disease without esophagitis (principal); R10.13 Epigastric pain; D64.9 Anemia, unspecified; R91.8 Other nonspecific abnormal finding of lung field; K57.30 Diverticulosis of large intestine without perforation or abscess without bleeding; N28.1 Cyst of kidney, acquired; Z90.49 Acquired absence of other specified parts of digestive tract
CPT/HCPCS: 36415; 74177; 82565

== ENCOUNTER 2024-11-13 13:36 | Outpatient (CLI) | payer MEDICARE ==
[2024-11-13 14:30] LABS: #Basophils Less than 0.03 10x3/uL (0.0-0.2); #Eosinophils 0.24 10x3/uL (0.0-0.7); #Monocytes 0.56 10x3/uL (0.11-0.59); #Neutrophils 2.37 10x3/uL (1.40-6.50); %Basophils 0.4 % (0.0-1.0); %Eosinophils 4.4 % (0.0-10.0); %Lymphocytes 41.0 % (21.0-51.0); %Monocytes 10.3 % (0.0-10.0); %Neutrophils 43.7 % (42.0-75.0); Hematocrit 36.3 % (36.0-47.0); Hemoglobin 11.8 g/dL (12.0-16.0); Mean Corpuscular Hemoglobin 29.6 pg (27.0-31.0); Mean Corpuscular Volume 91.2 fL (78.0-98.0); Platelet Count 276 10x3/uL (130-400); Red Blood Cell (RBC) Count 3.98 mill/uL (4.20-5.40); White Blood Cell (WBC) Count 5.42 10x3/uL (4.8-10.8)
[2024-11-13 14:47] LABS: Anion Gap 11 mmol/L (10-20); BUN (Urea Nitrogen) 16 mg/dL (9.8-20.1); Calc. Creatinine Clearance 0 mL/min (70-130); Calcium 9.4 mg/dL (7.8-10.44); Carbon Dioxide 28 mmol/L (23-31); Chloride 104 mmol/L (98-107); Glucose 88 mg/dL (83-110); Potassium 4.2 mmol/L (3.5-5.1); Sodium 139 mmol/L (136-145)
== END 2024-11-13 13:37 | disposition home or self-care (01) ==
LOC: LABBT 13:36
PROVIDERS: ATTEND Neurological Surgery
DX: Z01.818 Encounter for other preprocedural examination (principal); M54.16 Radiculopathy, lumbar region
CPT/HCPCS: 80048; 85025; 93005; 93010

== ENCOUNTER 2024-11-20 05:26 | Day surgery (SDC) | payer MEDICARE ==
[2024-11-13 14:02] VITALS: BMI 36.0
[2024-11-20] MEDS ORDERED: fentaNYL PF 100 MCG/2 ML SYRINGE ONE ×2 (06:14→08:43)
[2024-11-20] MEDS ORDERED: PROPOFOL 20 ML ONE (06:14)
[2024-11-20] MEDS ORDERED: Rocuronium Bromide 10 MG/ML (10ML VIAL) ONE (06:16)
[2024-11-20] MEDS ORDERED: Lidocaine 1% PF 5 ML VIAL ONE (06:16)
[2024-11-20] MEDS ORDERED: CEFAZOLIN 2 GM VIAL ONE ×2 (06:20→11:17)
[2024-11-20] MEDS ORDERED: Thrombin 5000 UNITS/5 ML VIAL ONE (06:28)
[2024-11-20] MEDS ORDERED: Famotidine/PF 20 mg/2ml Vial ONE (06:41)
[2024-11-20] MEDS ORDERED: Ondansetron PF 4 MG/2 ML Vial ONE (07:14)
[2024-11-20] MEDS ORDERED: PHENYLEPHRINE-NS 100 MCG/ML 10 ML SYRINGE ONE (07:35)
[2024-11-20] MEDS ORDERED: Glycopyrrolate 0.2 MG/ML 5 ML SYRINGE ONE (07:35)
[2024-11-20] MEDS ORDERED: SUGAMMADEX SODIUM 200 MG/2 ML VIAL ONE ×2 (08:45→09:00)
[2024-11-20] MEDS ORDERED: HYDROcodone/Acetaminophen 5/325 mg Tablet ONE (10:43)
== END 2024-11-20 15:50 | disposition home or self-care (01) ==
LOC: SDC 05:26
PROVIDERS: ATTEND Neurological Surgery
PROC: 0SG0071 Fusion of Lumbar Vertebral Joint with Autologous Tissue Substitute, Posterior Approach, Posterior Column, Open Approach (ICD-10-PCS; principal; 2024-11-20)
DX: M48.061 Spinal stenosis, lumbar region without neurogenic claudication (principal); M54.16 Radiculopathy, lumbar region; I10 Essential (primary) hypertension; I25.10 Atherosclerotic heart disease of native coronary artery without angina pectoris; K21.9 Gastro-esophageal reflux disease without esophagitis; Z96.651 Presence of right artificial knee joint; Z90.49 Acquired absence of other specified parts of digestive tract; Z90.710 Acquired absence of both cervix and uterus; Z88.5 Allergy status to narcotic agent; Z88.2 Allergy status to sulfonamides; Z79.01 Long term (current) use of anticoagulants; Z79.899 Other long term (current) drug therapy
CPT/HCPCS: 20931; 20936; 22612; 22614; 22842; C1713 ×3; C1889 ×2; J0169; J0665; J1100; J2704